=== PATIENT | female | born 1990 | race Caucasian/White ===

== ENCOUNTER 2017-07-07 16:51 | Observation (INO) | payer OTHER, MEDICAID ==
[2017-07-07 18:19] LABS: ADD MAN DIFF? NO
[2017-07-07 18:21] LABS: WHITE BLOOD COUNT 8.9 10^3/ul (4.8-10.8)
[2017-07-07 18:21] LABS: BASOPHILS % 0.3 % (0.0-2.0); EOSINOPHILS # 0.1 10^3/ul (0.0-0.5); HEMOGLOBIN 12.2 g/dl (12.0-16.0); LYMPHOCYTES # 2.9 10^3/ul (0.8-2.9); LYMPHOCYTES % 31.9 % (15.0-51.0); MEAN CORPUSCULAR HEMOGLOBIN 28.3 pg (29.0-33.0); MEAN CORPUSCULAR HGB CONC 34.9 g/dl (32.0-37.0); MEAN CORPUSCULAR VOLUME 81.2 fl (82.0-101.0); MEAN PLATELET VOLUME 11.5 fl (7.4-10.4); MONOCYTE # 0.7 10^3/ul (0.3-0.9); MONOCYTES % 7.8 % (0.0-11.0); NEUTROPHIL # 5.2 10^3/ul (1.6-7.5); NEUTROPHILS % 58.6 % (39.0-77.0); PLATELET COUNT 343 10^3/UL (140-415); RED BLOOD COUNT 4.31 10^6/ul (4.20-5.40); RED CELL DISTRIBUTION WIDTH 12.3 % (11.5-14.5)
[2017-07-07 18:25] LABS: ADD UMIC NO; UR ASCORBIC ACID NEGATIVE (NEGATIVE); UR BACTERIA FEW /HPF (NONE SEEN); UR BILIRUBIN (Dip) NEGATIVE (NEGATIVE); UR BLOOD (Dip) NEGATIVE (NEGATIVE); UR CLARITY SLIGHTLY CLOUDY (CLEAR); UR COLOR YELLOW (YELLOW); UR GLUCOSE (Dip) 2+ mg/dL (NEGATIVE); UR KETONES (Dip) NEGATIVE (NEGATIVE); UR LEUKOCYTE ESTERASE (Dip) NEGATIVE Leu/ul (NEGATIVE); UR MUCUS FEW /HPF (NONE SEEN); UR NITRITE (Dip) NEGATIVE (NEGATIVE); UR RBC 0 /HPF (0-5); UR SPECIFIC GRAVITY (Dip) 1.024 (1.003-1.030); UR SQUAMOUS EPITHELIAL CELL FEW /HPF (FEW); UR TOTAL PROTEIN (Dip) NEGATIVE (NEGATIVE); UR UROBILINOGEN (Dip) 1+ mg/dL (NEGATIVE); UR WBC 0 /HPF (0-5)
[2017-07-07 18:39] LABS: ALANINE AMINOTRANSFERASE 36 IU/L (13-69); ALBUMIN 3.6 g/dl (3.3-4.9); ALBUMIN/GLOBULIN RATIO 1.05; ALKALINE PHOSPHATASE 123 IU/L (42-121); ANION GAP 14 (8-16); ASPARTATE AMINO TRANSFERASE 25 IU/L (15-46); BILIRUBIN,INDIRECT 0.1 mg/dl (0-1.1); BILIRUBIN,TOTAL 0.1 mg/dl (0.2-1.3); BLOOD UREA NITROGEN 10 mg/dl (7-20); CALCIUM 9.2 mg/dl (8.4-10.2); CARBON DIOXIDE 20 mmol/L (21-31); CHLORIDE 106 mmol/L (97-110); CREATININE 0.45 mg/dl (0.44-1.00); GLUCOSE 101 mg/dl (70-220); POTASSIUM 3.8 mmol/L (3.5-5.1); SODIUM 136 mmol/L (135-144); URIC ACID 3.1 mg/dl (3.1-7.9)
== END 2017-07-07 20:15 | disposition left against medical advice (07) ==
LOC: OBT 16:51 → L-D 16:53 → OBT 19:00 → L-D 19:00
DX: O13.3 Gestational [pregnancy-induced] hypertension without significant proteinuria, third trimester (principal); Z3A.33 33 weeks gestation of pregnancy
CPT/HCPCS: 36415; 76818; 80053; 81001; 81003; 82962; 84560; 85025; 99217

== ENCOUNTER 2017-08-02 01:36 | Outpatient (CLI) | payer OTHER ==
[2017-08-02 02:24] LABS: ADD UMIC YES; UR ASCORBIC ACID NEGATIVE (NEGATIVE); UR BACTERIA FEW /HPF (NONE SEEN); UR BILIRUBIN (Dip) NEGATIVE (NEGATIVE); UR BLOOD (Dip) NEGATIVE (NEGATIVE); UR CLARITY CLEAR (CLEAR); UR COLOR YELLOW (YELLOW); UR GLUCOSE (Dip) 1+ mg/dL (NEGATIVE); UR KETONES (Dip) NEGATIVE (NEGATIVE); UR LEUKOCYTE ESTERASE (Dip) NEGATIVE Leu/ul (NEGATIVE); UR MUCUS FEW /HPF (NONE SEEN); UR NITRITE (Dip) NEGATIVE (NEGATIVE); UR RBC 1 /HPF (0-5); UR SPECIFIC GRAVITY (Dip) 1.024 (1.003-1.030); UR SQUAMOUS EPITHELIAL CELL FEW /HPF (FEW); UR TOTAL PROTEIN (Dip) 2+ mg/dl (NEGATIVE); UR UROBILINOGEN (Dip) NEGATIVE (NEGATIVE); UR WBC 1 /HPF (0-5)
[2017-08-02 03:39] LABS: ADD MAN DIFF? NO
[2017-08-02 03:41] LABS: BASOPHILS % 0.3 % (0.0-2.0); EOSINOPHILS # 0.2 10^3/ul (0.0-0.5); EOSINOPHILS % 1.8 % (0.0-7.0); HEMATOCRIT 31.7 % (37.0-47.0); HEMOGLOBIN 10.9 g/dl (12.0-16.0); LYMPHOCYTES # 2.8 10^3/ul (0.8-2.9); LYMPHOCYTES % 31.2 % (15.0-51.0); MEAN CORPUSCULAR HEMOGLOBIN 28.2 pg (29.0-33.0); MEAN CORPUSCULAR HGB CONC 34.4 g/dl (32.0-37.0); MEAN CORPUSCULAR VOLUME 81.9 fl (82.0-101.0); MONOCYTE # 0.5 10^3/ul (0.3-0.9); NEUTROPHIL # 5.5 10^3/ul (1.6-7.5); NEUTROPHILS % 60.4 % (39.0-77.0); PLATELET COUNT 240 10^3/UL (140-415); RED BLOOD COUNT 3.87 10^6/ul (4.20-5.40); RED CELL DISTRIBUTION WIDTH 13.2 % (11.5-14.5)
[2017-08-02 03:57] LABS: ALANINE AMINOTRANSFERASE 31 IU/L (13-69); ALBUMIN 3.4 g/dl (3.3-4.9); ALBUMIN/GLOBULIN RATIO 1.06; ALKALINE PHOSPHATASE 139 IU/L (42-121); ANION GAP 13 (8-16); ASPARTATE AMINO TRANSFERASE 24 IU/L (15-46); BLOOD UREA NITROGEN 16 mg/dl (7-20); CALCIUM 9.1 mg/dl (8.4-10.2); CARBON DIOXIDE 20 mmol/L (21-31); CHLORIDE 108 mmol/L (97-110); CREATININE 0.57 mg/dl (0.44-1.00); GLUCOSE 167 mg/dl (70-220); POTASSIUM 4.2 mmol/L (3.5-5.1); SODIUM 137 mmol/L (135-144); TOTAL PROTEIN 6.6 g/dl (6.1-8.1); URIC ACID 4.5 mg/dl (3.1-7.9)
== END 2017-08-02 05:15 | disposition home or self-care (01) ==
LOC: OBT 01:36 → NST 01:37 → L-D 01:54 → OBT 05:15
DX: O62.9 Abnormality of forces of labor, unspecified (principal); O24.419 Gestational diabetes mellitus in pregnancy, unspecified control; Z79.4 Long term (current) use of insulin; Z3A.35 35 weeks gestation of pregnancy
CPT/HCPCS: 76815; 76818; 80053; 81001; 82962; 84560; 85025

== ENCOUNTER 2017-08-14 05:33 | Inpatient (IN) | payer OTHER ==
[2017-08-14] MEDS ORDERED: MISOPROSTOL 200 MCG TAB PR ×2 (06:00→17:30)
[2017-08-14] MEDS ORDERED: CARBOPROST 250 MCG INJ IM ×2 (06:00→17:30)
[2017-08-14] MEDS ORDERED: METHYLERGONOVINE 0.2 MG INJ IM (06:00)
[2017-08-14] MEDS ORDERED: OXYTOCIN 30 UNITS/LR 500 ML IV ×5 (06:00→17:30)
[2017-08-14 06:25] LABS: ADD MAN DIFF? NO
[2017-08-14 06:36] LABS: BASOPHILS % 0.5 % (0.0-2.0); EOSINOPHILS # 0.1 10^3/ul (0.0-0.5); EOSINOPHILS % 1.2 % (0.0-7.0); HEMATOCRIT 31.5 % (37.0-47.0); HEMOGLOBIN 10.8 g/dl (12.0-16.0); LYMPHOCYTES # 3.4 10^3/ul (0.8-2.9); LYMPHOCYTES % 40.6 % (15.0-51.0); MEAN CORPUSCULAR HEMOGLOBIN 27.8 pg (29.0-33.0); MEAN CORPUSCULAR HGB CONC 34.3 g/dl (32.0-37.0); MEAN CORPUSCULAR VOLUME 81.2 fl (82.0-101.0); MEAN PLATELET VOLUME 12.3 fl (7.4-10.4); MONOCYTE # 0.6 10^3/ul (0.3-0.9); MONOCYTES % 7.3 % (0.0-11.0); NEUTROPHIL # 4.3 10^3/ul (1.6-7.5); PLATELET COUNT 253 10^3/UL (140-415); RED BLOOD COUNT 3.88 10^6/ul (4.20-5.40); RED CELL DISTRIBUTION WIDTH 13.9 % (11.5-14.5)
[2017-08-14 06:36] LABS: WHITE BLOOD COUNT 8.5 10^3/ul (4.8-10.8)
[2017-08-14] MEDS: LACTATED RINGER'S 1,000 ML IV ×4 (06:40→22:23)
[2017-08-14 06:56] LABS: INR 0.91; PARTIAL THROMBOPLASTIN TIME 28.3 Sec (25.0-35.0); PROTIME 12.3 Sec (11.9-14.9)
[2017-08-14 07:17] LABS: ALANINE AMINOTRANSFERASE 35 IU/L (13-69); ALBUMIN 3.1 g/dl (3.3-4.9); ALBUMIN/GLOBULIN RATIO 0.91; ALKALINE PHOSPHATASE 158 IU/L (42-121); ANION GAP 12 (8-16); ASPARTATE AMINO TRANSFERASE 27 IU/L (15-46); BILIRUBIN,INDIRECT 0.1 mg/dl (0-1.1); BILIRUBIN,TOTAL 0.1 mg/dl (0.2-1.3); BLOOD UREA NITROGEN 12 mg/dl (7-20); CALCIUM 9.3 mg/dl (8.4-10.2); CARBON DIOXIDE 20 mmol/L (21-31); CHLORIDE 109 mmol/L (97-110); CREATININE 0.55 mg/dl (0.44-1.00); GLUCOSE 134 mg/dl (70-220); POTASSIUM 4.2 mmol/L (3.5-5.1); SODIUM 137 mmol/L (135-144); TOTAL PROTEIN 6.5 g/dl (6.1-8.1); URIC ACID 4.4 mg/dl (3.1-7.9)
[2017-08-14 07:19] LABS: GLUCOSE 134 mg/dl (70-220)
[2017-08-14 07:20] LABS: ADD UMIC YES; UR ASCORBIC ACID NEGATIVE (NEGATIVE); UR BACTERIA FEW /HPF (NONE SEEN); UR BILIRUBIN (Dip) NEGATIVE (NEGATIVE); UR BLOOD (Dip) NEGATIVE (NEGATIVE); UR CLARITY SLIGHTLY CLOUDY (CLEAR); UR COLOR YELLOW (YELLOW); UR GLUCOSE (Dip) 1+ mg/dL (NEGATIVE); UR KETONES (Dip) NEGATIVE (NEGATIVE); UR LEUKOCYTE ESTERASE (Dip) NEGATIVE Leu/ul (NEGATIVE); UR MUCUS MANY /HPF (NONE SEEN); UR NITRITE (Dip) NEGATIVE (NEGATIVE); UR RBC 1 /HPF (0-5); UR SPECIFIC GRAVITY (Dip) 1.023 (1.003-1.030); UR SQUAMOUS EPITHELIAL CELL FEW /HPF (FEW); UR TOTAL PROTEIN (Dip) 2+ mg/dl (NEGATIVE); UR UROBILINOGEN (Dip) 1+ mg/dL (NEGATIVE); UR WBC 2 /HPF (0-5)
[2017-08-14 07:25] LABS: HEPATITIS B SURFACE ANTIGEN NEGATIVE (NEGATIVE)
[2017-08-14] MEDS: FAMOTIDINE 20 MG INJ IV (08:04)
[2017-08-14] MEDS: METOCLOPRAMIDE 10 MG INJ IV (08:04)
[2017-08-14] MEDS: CITRIC ACID/SODIUM CITRATE 15 ML CUP PO (08:04)
[2017-08-14] MEDS: MAGNESIUM SULFATE 4 GM/100 ML 100 ML IV (08:08)
[2017-08-14] MEDS ORDERED: FENTAnyl 50 MCG/ML VIAL (08:22)
[2017-08-14] MEDS ORDERED: morphine SULFATE/PF (10 MG/10 ML) INJ (08:22)
[2017-08-14] MEDS ORDERED: PHENYLephrine (100 MCG/ML) 5ML SYG (08:41)
[2017-08-14] MEDS: MAGNESIUM SULFATE 20 GM/500 ML 500 ML IV ×2 (08:46→18:34)
[2017-08-14] MEDS: CEFAZOLIN 2 GM/50 ML (PMX) 50 ML IV (08:52)
[2017-08-14] MEDS ORDERED: EPHEDrine SULFATE 50 MG/5 ML SYG (09:03)
[2017-08-14] MEDS ORDERED: ONDANSETRON 4 MG INJ (09:06)
[2017-08-14] MEDS: OXYTOCIN 30 UNITS/LR 500 ML IV ×3 (09:47→17:05)
[2017-08-14] MEDS ORDERED: HYDROmorphONE 0.5 MG/0.5 ML SYG IV ×2 (10:00)
[2017-08-14] MEDS ORDERED: DIPHENHYDRAMINE 50 MG INJ IV (10:00)
[2017-08-14] MEDS ORDERED: KETOROLAC 30 MG INJ IV (10:00)
[2017-08-14] MEDS ORDERED: NALOXONE (0.4 MG/ML) INJ IV (10:00)
[2017-08-14] MEDS ORDERED: MEPERIDINE 25 MG INJ IV (10:00)
[2017-08-14] MEDS ORDERED: FENTAnyl 50 MCG/ML VIAL IV (10:00)
[2017-08-14] MEDS ORDERED: ZOLPIDEM 5 MG TAB PO (10:00)
[2017-08-14] MEDS ORDERED: ONDANSETRON 4 MG INJ IV ×2 (10:00)
[2017-08-14] MEDS ORDERED: HYDROmorphONE (0.2 MG/ML) 10ML SYG IV (10:00)
[2017-08-14] MEDS ORDERED: PROCHLORPERAZINE 10 MG INJ IV (10:00)
[2017-08-14] MEDS: KETOROLAC 30 MG INJ IV ×2 (11:01→20:12)
[2017-08-14] MEDS: DIPHENHYDRAMINE 50 MG INJ IV (11:51)
[2017-08-14 13:19] LABS: IRON 93 ug/dl (35-150)
[2017-08-14 13:28] LABS: % IRON SATURATION 15 % SAT (22-52); TOTAL IRON BINDING CAPACITY 601 ug/dl (241-421)
[2017-08-14] MEDS ORDERED: GLUCAGON 1 MG INJ IM (13:30)
[2017-08-14] MEDS: ACCU-CHEK XX ×2 (13:30→20:05)
[2017-08-14] MEDS ORDERED: DEXTROSE 50% 50 ML SYRINGE IV ×2 (13:30)
[2017-08-14] MEDS ORDERED: GLUCOSE GEL 15 GRAM TUBE BUCCAL (13:30)
[2017-08-14] MEDS ORDERED: GLUCOSE GEL 15 GRAM TUBE PO ×2 (13:30)
[2017-08-14 13:56] LABS: FERRITIN 8.3 ng/ml (6.2-137.0)
[2017-08-14] MEDS ORDERED: OXYCODONE/ACETAMINOPHEN (5/325) TAB PO (17:30)
[2017-08-14] MEDS: INSULIN ASPART [NOVOLOG] 3 ML PEN SC ×2 (18:05→21:00)
[2017-08-14 19:33] LABS: MAGNESIUM 4.9 mg/dl (1.7-2.5)
[2017-08-14] MEDS: NPH, HUMAN INSULIN ISOPHANE 3ML VIAL SC (20:26)
[2017-08-14] MEDS: SENNA/DOCUSATE NA (8.6MG/50MG) TAB PO (21:40)
[2017-08-14 21:47] LABS: RAPID PLASMA REAGIN NONREACTIVE (NR)
[2017-08-15 01:31] LABS: MAGNESIUM 5.1 mg/dl (1.7-2.5)
[2017-08-15] MEDS: MAGNESIUM SULFATE 20 GM/500 ML 500 ML IV (04:42)
[2017-08-15] MEDS: KETOROLAC 30 MG INJ IV (05:58)
[2017-08-15] MEDS: IBUPROFEN 800 MG TAB PO ×3 (06:00→21:38)
[2017-08-15 07:56] LABS: ADD MAN DIFF? NO
[2017-08-15 08:04] LABS: WHITE BLOOD COUNT 8.7 10^3/ul (4.8-10.8)
[2017-08-15 08:04] LABS: BASOPHILS % 0.2 % (0.0-2.0); EOSINOPHILS % 0.3 % (0.0-7.0); HEMATOCRIT 30.2 % (37.0-47.0); HEMOGLOBIN 10.2 g/dl (12.0-16.0); LYMPHOCYTES # 1.7 10^3/ul (0.8-2.9); LYMPHOCYTES % 19.8 % (15.0-51.0); MEAN CORPUSCULAR HEMOGLOBIN 27.6 pg (29.0-33.0); MEAN CORPUSCULAR HGB CONC 33.8 g/dl (32.0-37.0); MEAN CORPUSCULAR VOLUME 81.6 fl (82.0-101.0); MEAN PLATELET VOLUME 12.3 fl (7.4-10.4); MONOCYTE # 0.4 10^3/ul (0.3-0.9); MONOCYTES % 4.8 % (0.0-11.0); NEUTROPHIL # 6.5 10^3/ul (1.6-7.5); NEUTROPHILS % 74.6 % (39.0-77.0); PLATELET COUNT 258 10^3/UL (140-415); RED CELL DISTRIBUTION WIDTH 13.8 % (11.5-14.5)
[2017-08-15] MEDS: INSULIN ASPART [NOVOLOG] 3 ML PEN SC ×4 (08:05→20:29)
[2017-08-15 08:36] LABS: MAGNESIUM 5.1 mg/dl (1.7-2.5)
[2017-08-15] MEDS: LACTATED RINGER'S 1,000 ML IV ×2 (09:05→16:40)
[2017-08-15] MEDS: ACCU-CHEK XX ×2 (10:05→15:10)
[2017-08-15] MEDS: SENNA/DOCUSATE NA (8.6MG/50MG) TAB PO ×2 (11:16→21:38)
[2017-08-15 12:12] LABS: RUBELLA ANTIBODY - IGG 1.16 index; RUBELLA ANTIBODY - IGM <20.00 AU/mL
[2017-08-15] MEDS: INFLUENZA VIRUS VACCINE 0.5 ML (DISPENSING) IM* (16:39)
[2017-08-15] MEDS: LANOLIN 7 GM TUBE TOP (19:04)
[2017-08-15] MEDS: OXYCODONE/ACETAMINOPHEN (5/325) TAB PO (19:41)
[2017-08-15] MEDS: NPH, HUMAN INSULIN ISOPHANE 3ML VIAL SC (20:27)
[2017-08-16] MEDS: LACTATED RINGER'S 1,000 ML IV ×3 (01:05→17:05)
[2017-08-16] MEDS: OXYCODONE/ACETAMINOPHEN (5/325) TAB PO ×4 (02:57→19:13)
[2017-08-16] MEDS: IBUPROFEN 800 MG TAB PO ×3 (05:31→21:16)
[2017-08-16] MEDS: INSULIN ASPART [NOVOLOG] 3 ML PEN SC ×4 (08:05→20:57)
[2017-08-16] MEDS: SENNA/DOCUSATE NA (8.6MG/50MG) TAB PO ×2 (08:21→21:16)
[2017-08-16] MEDS ORDERED: INFLUENZA VIRUS VACCINE 0.5 ML (DISPENSING) IM* (09:00)
[2017-08-16] MEDS: ACCU-CHEK XX (10:05)
[2017-08-16] MEDS: NPH, HUMAN INSULIN ISOPHANE 3ML VIAL SC (20:45)
[2017-08-17] MEDS: LACTATED RINGER'S 1,000 ML IV (01:05)
[2017-08-17] MEDS: OXYCODONE/ACETAMINOPHEN (5/325) TAB PO ×3 (03:53→19:00)
[2017-08-17] MEDS: IBUPROFEN 800 MG TAB PO ×2 (05:39→14:54)
[2017-08-17] MEDS: SENNA/DOCUSATE NA (8.6MG/50MG) TAB PO (09:00)
[2017-08-17] MEDS: DIPHTH/TET/ACEL PERTUSS (ADULT) 0.5 ML VIAL IM* (16:40)
== END 2017-08-17 20:05 | disposition home or self-care (01) | DRG 766 ==
LOC: L-D 05:33 → PP1 16:06
PROC: 10D00Z1 Extraction of Products of Conception, Low, Open Approach (ICD-10-PCS; principal; 2017-08-14 07:30)
PROC: 4A1HXCZ Monitoring of Products of Conception, Cardiac Rate, External Approach (ICD-10-PCS; 2017-08-14 07:30)
DX: O34.211 Maternal care for low transverse scar from previous cesarean delivery (principal); O99.284 Endocrine, nutritional and metabolic diseases complicating childbirth; E88.81 Metabolic syndrome and other insulin resistance; O24.424 Gestational diabetes mellitus in childbirth, insulin controlled; Z37.0 Single live birth; Z3A.37 37 weeks gestation of pregnancy; O14.94 Unspecified pre-eclampsia, complicating childbirth; O13.4 Gestational [pregnancy-induced] hypertension without significant proteinuria, complicating childbirth; Z23 Encounter for immunization
CPT/HCPCS: 80053; 81001; 82728; 82947; 82962; 83540; 83735; 84443; 84560; 85025; 85384; 85610; 85730; 86592; 86762; 86850; 86900; 86901; 87340; 88307; 90686; 94760; 94762; 99464